=== PATIENT | male | born 1980 | race Caucasian/White ===

== ENCOUNTER 2017-05-08 11:59 | Inpatient (IN) | payer OTHER ==
[2017-05-08] MEDS ORDERED: NS 500 ML IV ONE (13:15)
--- NOTE | 2017-05-08 13:23 | EDPHY ---
H & P Time Seen by Provider: 05/08/17 12:55 HPI/ROS: HPI Rib injury with bruising. 37-year-old male by private vehicle. This patient was snowboarding in the [facility] area last . He fell and hit his left flank area and lateral chest wall hard. He was diagnosed by chest x-ray with a 10th Left-sided rib fracture. He presents to the emergency department complaining of continued pain and extensive ecchymosis involving the posterior lateral aspect of his thorax flank area and mid abdomen. He has been taking ibuprofen and a narcotic acetaminophen combination with some relief. He is out of his narcotic pain medication. He otherwise is not on any antiplatelet or anticoagulant medications. He states that the pain is worse with movement and deep breathing. ROS: Constitutional: No fever, no chills. No weakness. Eyes: No discharge. No changes in vision. ENT: No sore throat. No nasal congestion or rhinorrhea. Respiratory: No cough. No shortness of breath. Cardiac: No chest pain, no palpitations. Gastrointestinal: As above, no vomiting, no diarrhea. Genitourinary: No hematuria. No dysuria or increased frequency with urination. Musculoskeletal: No back pain. No neck pain. As above. Skin: As above. Neurological: No headache. No focal weakness or altered sensation. Past medical history: Denies any significant past medical history. As above. Social history: Here with his girlfriend. Nonsmoker. No alcohol. Physical Exam: General Appearance: Alert, no distress. Standing in the examination room. This patient is responding to questions appropriately and in full sentences. This patient appears well-hydrated and well-nourished. Head: Normocephalic atraumatic. Face: Facial bones are stable on palpation. Eyes: Pupils equal and round and reactive to light, no pallor or injection. No lid erythema or edema. ENT, Mouth: Mucous membranes moist. Dentition is intact. No malocclusion of the jaw. No tongue lacerations or abrasions. Pharynx is clear. The bilateral nasal canals are clear. No septal hematoma. Respiratory: There are no retractions, lungs are clear to auscultation with good air movement bilaterally. Chest wall is stable to AP and lateral palpation. Point tenderness at posterior axillary line 9th and 10th rib. He has extensive ecchymosis involving the lateral mid and posterior thorax on the left side extending down through the lateral aspect of his mid abdomen on the left side. He has vague tenderness on palpation through this area. Cardiovascular: Regular rate and rhythm. No murmur. Gastrointestinal: Abdomen is otherwise soft and nontender, no masses, bowel sounds normal. Neurological: Motor sensory function is intact. Cranial nerves are normal. Cerebellar function intact. Skin: Warm and dry, no rashes. No lacerations, abrasions or contusions. Musculoskeletal: Neck is supple and nontender. The trachea is midline. No midline cervical, thoracic, lumbar or sacral tenderness on palpation. No flank tenderness on palpation. Extremities are symmetrical, full range of motion. All joints in the bilateral upper and bilateral lower extremities range without pain or impingement. No tenderness on palpation of the long bones in the bilateral upper and bilateral lower extremities. Psychiatric: No agitation. No depression. Database: EKG: Imaging: CT chest abdomen and pelvis with IV contrast: Significant for multiple displaced rib fractures on the left side 9 through 12. There is a small to moderate hemo thorax on the left side. No pneumothorax. There is some scattered splenic intraparenchymal hematoma grade 2. Left kidney appears normal. He has a probable nondisplaced transverse process fracture at T8. Results were discussed with staff radiologist. Procedures: Emergency department course: Vital signs reviewed. He is moderately hypertensive. Vital signs otherwise unremarkable. I discussed management options including observation and close follow-up as well as CT imaging. He endorses CT imaging. I-STAT obtained. IV placed. Patient will be given 500 cc of IV normal saline in preparation for CT contrast dye. Patient will be sent for CT imaging of the chest abdomen and pelvis after verification of a normal creatinine. 2:05 p.m., patient re-evaluated. Results of CT scan discussed with him. He was given 0.5 mg of IV hydromorphone initially for pain control. This will be repeated as needed. I explained to him that he would require admission likely for observation. Trauma surgery paged for consultation. 2:25 p.m., spoke with Dr. Joaquin Vickers, on-call trauma surgeon. Case discussed in detail with him. He accepts this patient for admission. Plan for admission reviewed with the patient and his girlfriend. The patient agrees with admission. The patient's remaining emergency department course under my care has been uneventful. The patient was admitted in stable condition to the trauma service under the care of Dr. Joaquin Vickers. Differential Diagnosis: The differential diagnosis on this patient includes but is not limited to rib fracture, chest wall hematoma, hemothorax, rectus sheath hematoma, renal laceration, splenic injury. This represents a partial list of diagnoses considered. These considerations are based on history, physical exam, past history, reassessment and diagnostic testing. Smoking Status: Never smoked Constitutional: Initial Vital Signs Temperature (C) 36.4 C 05/08/17 12:04 Heart Rate 80 05/08/17 12:04 Respiratory Rate 18 05/08/17 12:04 Blood Pressure 148/97 H 05/08/17 12:04 O2 Sat (%) 94 05/08/17 12:04 O2 Delivery Mode Room Air Allergies/Adverse Reactions: No Known Allergies Allergy (Unverified 05/08/17 12:04) Home Medications: Medication Instructions Recorded NK [No Known Home Meds] 05/08/17 Medical Decision Making - Diagnostics Imaging Results: Imaging Impressions Abdomen CT 05/08/17 13:16 Impression: 1. Multifocal small intraparenchymal splenic hematomas compatible with grade II injury. 2. Left-sided hemothorax and multiple rib fractures. See dedicated chest CT report for details. Findings and recommendations discussed with Kalen Curry MD at 2:00 PM hour, 05/08/2017. Final report concurs with initial preliminary interpretation. Chest CT 05/08/17 13:16 Impression: 1. Comminuted, displaced fractures of the left ninth, 10th, 11th and 12th ribs with associated moderate hemothorax. 2. Nondisplaced fracture of the T8 left transverse process. 3. See dedicated abdomen and pelvis CT report for description of splenic laceration. Findings and recommendations discussed with Kalen Curry MD at hour , 05/08/2017. - Data Points Laboratory Results: 05/08/17 13:24 POC Hgb 13.9 gm/dL gm/dL (13.7-17.5) POC Hct 41 % % (40-51) POC Sodium 141 mEq/L mEq/L (135-145) POC Potassium 4.0 mEq/L mEq/L (3.3-5.0) POC Chloride 103 mEq/L mEq/L (97-110) POC BUN 12 mg/dL mg/dL (7-23) POC Creatinine 0.9 mg/dL mg/dL (0.7-1.3) POC Glucose 104 mg/dL H mg/dL (70-100) Medications Given: Discontinued Medications Hydromorphone HCl (Dilaudid) 0.5 mg IVP EDNOW ONE Stop: 05/08/17 14:11 Last Admin: 05/08/17 14:20 Dose: 0.5 mg Sodium Chloride (Ns) 500 mls @ 0 mls/hr IV ONCE ONE; Wide Open PRN Reason: Protocol Stop: 05/08/17 13:16 Last Admin: 05/08/17 13:51 Dose: 500 mls Point of Care Test Results: 05/08/17 13:24 POC Sodium 141 POC Potassium 4.0 POC Chloride 103 POC BUN 12 POC Creatinine 0.9 POC Glucose 104 H Departure - Departure Disposition: [facility] Inpatient Acute Clinical Impression: Superficial bruising of chest wall, Multiple left rib fractures, Hemothorax on left, Splenic hemorrhage, Fracture of transverse process of thoracic vertebra Referrals: NONE *PRIMARY CARE P,. [Primary Care Provider] - As per Instructions
[2017-05-08] MEDS ORDERED: IOPAMIDOL (ISOVUE-300) 100 ML BTL ONE (13:26)
[2017-05-08] MEDS: HYDROmorphONE/DILAUDID 2 MG/ML INJ IVP ONE ×2 (14:20→15:30)
[2017-05-08] MEDS ORDERED: HYDROmorphONE/DILAUDID 1 MG/ML INJ IVP ONE (15:29)
[2017-05-08] MEDS ORDERED: HYDROmorphONE/DILAUDID 2 MG/ML INJ IVP ONE (15:45)
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
[2017-05-08] MEDS: HYDROmorphONE/DILAUDID 2 MG/ML INJ IVP PRN (18:00)
[2017-05-08] MEDS ORDERED: NS 1,000 ML IV SCH (18:00)
[2017-05-08] MEDS ORDERED: MIDAZOLAM 2 MG/2 ML VIAL ONE (22:32)
[2017-05-08] MEDS ORDERED: fentaNYL 100 MCG/2 ML INJ ONE (22:33)
[2017-05-08] MEDS ORDERED: MIDAZOLAM 2 MG/2 ML VIAL IVP ONE (23:02)
[2017-05-08] MEDS ORDERED: fentaNYL 100 MCG/2 ML INJ IVP ONE (23:02)
[2017-05-08] MEDS ORDERED: NS 1,000 ML IV ONE (23:03)
--- NOTE | 2017-05-08 23:18 | POSTOPPROG ---
Post Op Note Date of Operation: 05/08/17 Surgeon: Tomasz Vickers Anesthesia: IV Sedation Pre-op Diagnosis: LEFT HEMOTHORAX Post-op Diagnosis: SAME Indication: LARGE VOLUME HEMOTHORAX Procedure: LEFT TUBE THORACOSTOMY Findings: INITIAL 400CC EVACUATED Inf/Abcess present in the surg proc area at time of surgery?: No Depth: Organ Space EBL: Minimal Complications: 0 Drains: Constavac
[2017-05-08] MEDS ORDERED: D5W 1/2 NS W/ 20 KCl/L 1,000 ML IV SCH (23:30)
[2017-05-08] MEDS: KETOROLAC 15 MG/1 ML SDV IVP SCH (23:40)
[2017-05-09 05:11] LABS: PLATELET COUNT 175 10^3/uL (150-400)
[2017-05-09] MEDS: KETOROLAC 15 MG/1 ML SDV IVP SCH ×4 (06:00→23:04)
[2017-05-09] MEDS: OXYCODONE/APAP 5/325 TAB PO PRN ×4 (07:47→23:04)
--- NOTE | 2017-05-09 08:29 | PDMN ---
Medical Necessity Medical necessity: M540 Pleural effusion: A-2 days large volume hemothorax. , mult rib fxs (9-12) , poss intraparenchymal injury to spleen - CT placed- cont to monitor
[2017-05-09] MEDS ORDERED: MAGNESIUM HYDROXIDE 30 ML UDCUP PO PRN (14:24)
[2017-05-09] MEDS ORDERED: BISACODYL 10 MG SUPP PR PRN (14:24)
[2017-05-09] MEDS ORDERED: LACTULOSE 20 GM/30 ML UDCUP PO PRN (14:24)
--- NOTE | 2017-05-09 14:40 | SOAPPROG ---
SOAP Progress Note Assessment/Plan: Assessment: 37 y/o male s/p snowboarding fall with left hemothorax and multiple left rib fractures. S/p chest tube placement 05/08 S: Doing well. Pain is well controlled. Reports still feeling some shortness of breath. O: Alert NAD Afebrile No increased work of breathing. O2sat 98% of RA Chest sounds CTA bilaterally Incision cdi 900ml output from chest tube in the 8 hours since surgery. Plan: Continue to follow. 05/09/17 14:43 Objective: Vital Signs Temp Pulse Resp BP Pulse Ox 36.8 C 86 16 138/89 H 91 L 05/09/17 12:17 05/09/17 12:17 05/09/17 12:17 05/09/17 12:17 05/09/17 12:17 05/08/17 05/09/17 05/10/17 05:59 05:59 05:59 Intake Total 500 Output Total 400 Balance 100 ICD10 Worksheet Patient Problems: Problems Problem Status Onset Fracture of transverse process of thoracic vertebra Acute Hemothorax on left Acute Splenic hemorrhage Acute Superficial bruising of chest wall Acute
[2017-05-09] MEDS: POLYETHYLENE GLYCOL 3350 17 GM PKT PO PRN (14:53)
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
[2017-05-09] MEDS: SENNOSIDES/DOCUSATE SODIUM TAB PO SCH (20:00)
[2017-05-10] MEDS: OXYCODONE/APAP 5/325 TAB PO PRN ×2 (04:06→08:57)
[2017-05-10 05:09] LABS: PLATELET COUNT 205 10^3/uL (150-400)
[2017-05-10] MEDS: KETOROLAC 15 MG/1 ML SDV IVP SCH ×4 (06:25→23:10)
[2017-05-10] MEDS: SENNOSIDES/DOCUSATE SODIUM TAB PO SCH ×2 (08:57→23:11)
--- NOTE | 2017-05-10 09:01 | SOAPPROG ---
SOAP Progress Note Assessment/Plan: Assessment: 37 y/o male s/p snowboarding fall with left hemothorax and multiple left rib fractures. S/p chest tube placement 05/08 S: Doing well. Pain is well controlled. O: Alert, sitting in chair during visit NAD Afebrile No increased work of breathing. O2sat 92% on RA Chest sounds CTA bilaterally Incision cdi About 300ml out of chest tube in last 24 hours. Chest xray today stable. Plan: Continue to follow. 05/10/17 08:59 Objective: Vital Signs Temp Pulse Resp BP Pulse Ox 36.9 C 72 16 136/87 H 92 05/10/17 07:36 05/10/17 07:36 05/10/17 07:36 05/10/17 07:36 05/10/17 07:36 Laboratory Results 05/10/17 04:37 05/09/17 05/10/17 05/11/17 05:59 05:59 05:59 Intake Total 1000 Output Total 1000 100 Balance 0 -100 ICD10 Worksheet Patient Problems: Problems Problem Status Onset Fracture of transverse process of thoracic vertebra Acute Hemothorax on left Acute Splenic hemorrhage Acute Superficial bruising of chest wall Acute
[2017-05-10] MEDS: POLYETHYLENE GLYCOL 3350 17 GM PKT PO PRN (09:16)
[2017-05-10] MEDS ORDERED: ACETAMINOPHEN 325 MG TAB PO PRN (10:12)
[2017-05-10] MEDS: LIDOCAINE 4%/MENTHOL 1% PATCH TD SCH (10:37)
--- NOTE | 2017-05-10 12:30 | ASMTCMCOM ---
CM Note CM Note Notes: Chart reviewed. Chest tube remains in place for hemothorax treatment. Likely independent when medically cleared for discharge. CM available should needs arise. Date Signed: 05/10/2017 12:29 PM Electronically Signed By:Mary Neff RN
[2017-05-10] MEDS: oxyCODONE IR 5 MG TAB PO PRN ×5 (13:16→23:11)
[2017-05-10] MEDS: PATCH REMOVAL 1 EA PATCH TD SCH (23:14)
[2017-05-11] MEDS: oxyCODONE IR 5 MG TAB PO PRN ×6 (03:50→21:17)
[2017-05-11] MEDS: KETOROLAC 15 MG/1 ML SDV IVP SCH ×3 (06:48→18:04)
[2017-05-11] MEDS: SENNOSIDES/DOCUSATE SODIUM TAB PO SCH ×2 (08:34→21:00)
[2017-05-11] MEDS: LIDOCAINE 4%/MENTHOL 1% PATCH TD SCH (08:34)
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
[2017-05-11 11:59] LABS: PLATELET COUNT 292 10^3/uL (150-400)
[2017-05-11] MEDS: PATCH REMOVAL 1 EA PATCH TD SCH (21:03)
[2017-05-12] MEDS: KETOROLAC 15 MG/1 ML SDV IVP SCH ×3 (01:10→12:48)
[2017-05-12 05:15] LABS: PLATELET COUNT 262 10^3/uL (150-400)
[2017-05-12] MEDS: HYDROmorphONE/DILAUDID 2 MG/ML INJ IVP PRN ×2 (05:19→14:23)
[2017-05-12] MEDS: oxyCODONE IR 5 MG TAB PO PRN ×3 (05:20→14:58)
[2017-05-12] MEDS: LIDOCAINE 4%/MENTHOL 1% PATCH TD SCH (09:10)
[2017-05-12] MEDS: SENNOSIDES/DOCUSATE SODIUM TAB PO SCH (09:31)
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
[2017-05-12 16:37] VITALS: BP 135/77; PULSE 74; RESP 18; TEMP 98.8; O2SAT 93
--- NOTE | 2017-05-12 18:02 | ASMTCMCOM ---
CM Note CM Note Notes: Reviewed pt chart. Pt had chest tube removed today. Anticipate pt to dc home with girlfriend. CM available for further assistance if needed. Date Signed: 05/12/2017 03:56 PM Electronically Signed By:Carolee Corado RN
== END 2017-05-12 17:17 | disposition home or self-care (01) | DRG 964 ==
LOC: F3N 16:50 → OBSVTOIN 05-09 08:30
PROVIDERS: ADMIT Surgery; ATTEND Surgery
PROC: 0B9P3ZZ Drainage of Left Pleura, Percutaneous Approach (ICD-10-PCS; principal; 2017-05-09)
DX: S27.1XXA Traumatic hemothorax, initial encounter (principal); S36.031A Moderate laceration of spleen, initial encounter; S22.42XA Multiple fractures of ribs, left side, initial encounter for closed fracture; J90 Pleural effusion, not elsewhere classified; S22.069A Unspecified fracture of T7-T8 vertebra, initial encounter for closed fracture; Y93.23 Activity, snow (alpine) (downhill) skiing, snowboarding, sledding, tobogganing and snow tubing; V00.311A Fall from snowboard, initial encounter; Y92.838 Other recreation area as the place of occurrence of the external cause
CPT/HCPCS: 82947-QW; 96374; 97161-GP; J1170; J1885; J2250; J3010; Q9967

== ENCOUNTER → 2017-05-15 | Outpatient (CLI) | payer OTHER | LOC: FIMAGING 16:08 | PROVIDERS: ATTEND Surgery | DX: J94.2 Hemothorax (principal) ==

== ENCOUNTER → 2017-06-05 | Outpatient (CLI) | payer OTHER | LOC: FIMAGING 14:47 | PROVIDERS: ATTEND Surgery | DX: J90 Pleural effusion, not elsewhere classified (principal) ==

== ENCOUNTER → 2017-06-11 | Outpatient (CLI) | payer OTHER | LOC: FIMAGING 13:32 | PROVIDERS: ATTEND Physician Assistant | DX: J90 Pleural effusion, not elsewhere classified (principal); J94.2 Hemothorax; S22.39XA Fracture of one rib, unspecified side, initial encounter for closed fracture; S36.039A Unspecified laceration of spleen, initial encounter ==

== ENCOUNTER → 2017-08-02 | Outpatient (CLI) | payer OTHER | LOC: FIMAGING 11:24 | PROVIDERS: ATTEND Physician Assistant | DX: S22.39XD Fracture of one rib, unspecified side, subsequent encounter for fracture with routine healing (principal); V00.321D Fall from snow-skis, subsequent encounter; Y93.23 Activity, snow (alpine) (downhill) skiing, snowboarding, sledding, tobogganing and snow tubing ==